=== PATIENT | female | born 1965 | race Hispanic/Latino ===

== ENCOUNTER 2018-02-22 13:23 | Emergency (ER) | payer MEDICARE ==
[2018-02-22] MEDS ORDERED: ASPIRIN 325 MG TABLET ONE (13:52)
[2018-02-22] MEDS ORDERED: SODIUM CHLORIDE 0.9% 1000ML 1,000 ML IV ONE (13:53)
[2018-02-22] MEDS ORDERED: ACETAMINOPHEN EXTRA STRENGTH 500 MG TABLET ONE (13:53)
[2018-02-22] MEDS ORDERED: PROCHLORPERAZINE EDISYLATE 10 MG/2 ML VIAL ONE (13:53)
[2018-02-22 13:58] LABS: BASOPHILS % (AUTO) 0.3 % (0.0-5.0); EOSINOPHILS % (AUTO) 0.6 % (0.0-8.0); HEMATOCRIT 41.9 % (36-48); LYMPHOCYTES % (AUTO) 14.7 % (21.0-51.0); MEAN CORPUSCULAR HEMOGLOBIN 29.7 pg (27.0-33.0); MEAN CORPUSCULAR HGB CONC 34.1 g/dL (32.0-36.0); MEAN CORPUSCULAR VOLUME 87.1 fL (79-99); MONOCYTES % (AUTO) 4.7 % (3.0-13.0); NEUTROPHILS % (AUTO) 79.7 % (40.0-77.0); PLATELET COUNT (AUTO) 249 K/uL (130-400); RED BLOOD CELL COUNT(AUTO) 4.81 MIL/uL (4.00-5.50); RED CELL DISTRIBUTION WIDTH 15.4 % (11.0-15.5)
[2018-02-22 14:03] LABS: CREATININE 0.5 mg/dL (0.5-1.5); POTASSIUM 3.9 mmol/L (3.5-5.1)
[2018-02-22 14:11] LABS: ALBUMIN 3.3 g/dL (3.5-5.0); BILIRUBIN,TOTAL 0.5 mg/dL (0.2-1.0); TOTAL PROTEIN, SERUM 7.3 g/dL (6.0-8.3)
[2018-02-22 14:17] LABS: AMPHET/METH SCREEN,URINE NEGATIVE (NEGATIVE); BARBITURATE SCREEN, URINE NEGATIVE (NEGATIVE); BENZODIAZEPINES SCREEN,URINE NEGATIVE (NEGATIVE); CANNABINOID SCREEN,URINE NEGATIVE (NEGATIVE); COCAINE SCREEN,URINE NEGATIVE (NEGATIVE); OPIATE SCREEN,URINE NEGATIVE (NEGATIVE); PHENCYCLIDINE SCREEN,URINE NEGATIVE (NEGATIVE)
[2018-02-22 14:19] LABS: INR 0.95 (0.85-1.15)
[2018-02-22 14:27] LABS: B-TYPE NATRIURETIC PEPTIDE 12 pg/mL (0-100)
== END 2018-02-22 16:45 | disposition home or self-care (01) ==
LOC: EDH 13:23
DX: J20.9 Acute bronchitis, unspecified (principal); R07.89 Other chest pain; E11.9 Type 2 diabetes mellitus without complications; E78.5 Hyperlipidemia, unspecified; I10 Essential (primary) hypertension; Z90.49 Acquired absence of other specified parts of digestive tract
CPT/HCPCS: 36415; 71045; 80053; 80305; 82550; 83880; 84484; 85025; 85610; 85730; 93005; 94761; 96361; 96374; 99285; J0780; J7030

== ENCOUNTER → 2019-06-17 | Outpatient (CLI) | payer MEDICARE | END | disposition home or self-care (01) | LOC: RAH 09:17 | PROVIDERS: ATTEND Internal Medicine Gastroenterology | DX: K76.0 Fatty (change of) liver, not elsewhere classified (principal); R16.0 Hepatomegaly, not elsewhere classified; R11.2 Nausea with vomiting, unspecified | CPT/HCPCS: 76700; 78264; A9541 ==

== ENCOUNTER 2022-05-25 14:57 | Emergency (ER) | payer MEDICARE, OTHER ==
[~2022-05-25] VITALS: Ht 154.9 cm; Wt 79.4 kg
[2022-05-25 14:58] VITALS: BP 126/73
[2022-05-25 15:43] LABS: BASOPHILS % (AUTO) 0.5 % (0.0-5.0); EOSINOPHILS % (AUTO) 0.4 % (0.0-8.0); HEMATOCRIT 36.4 % (36-48); MEAN CORPUSCULAR HEMOGLOBIN 28.6 pg (27.0-33.0); MEAN CORPUSCULAR HGB CONC 32.7 g/dL (32.0-36.0); MEAN CORPUSCULAR VOLUME 87.5 fL (79-99); MONOCYTES % (AUTO) 6.2 % (3.0-13.0); NEUTROPHILS % (AUTO) 66.9 % (40.0-77.0); PLATELET COUNT (AUTO) 194 K/uL (130-400); RED BLOOD CELL COUNT(AUTO) 4.16 MIL/uL (4.00-5.50); RED CELL DISTRIBUTION WIDTH 17.1 % (11.0-15.5); WHITE BLOOD COUNT (AUTO) 10.3 K/uL (4.8-10.8)
[2022-05-25 15:46] LABS: APPEARANCE,URINE CLEAR (CLEAR); BILIRUBIN,URINE NEGATIVE (NEGATIVE); COLOR,URINE YELLOW (YELLOW); GLUCOSE, URINE (UA) NEGATIVE (NEGATIVE); KETONES,URINE 5 mg/dL (NEGATIVE); LEUKOCYTE ESTERASE ,URINE SMALL (NEGATIVE); NITRATE,URINE NEGATIVE (NEGATIVE); OCCULT BLOOD,URINE NEGATIVE (NEGATIVE); PROTEIN,URINE NEGATIVE (NEGATIVE); UROBILINOGEN,URINE 0.2 mg/dL (0.2-1.0)
[2022-05-25 15:56] LABS: BACTERIA,URINE Few /HPF (None Seen); RBC,URINE 0-1 /HPF (0-1)
[2022-05-25 15:57] LABS: MUCUS,URINE Rare LPF (None Seen); SQUAMOUS EPITHELIAL CELL,UR Few /HPF (0-2)
[2022-05-25 15:59] LABS: ALBUMIN 3.3 g/dL (3.5-5.0); CREATININE 0.7 mg/dL (0.5-1.5); POTASSIUM 4.8 mmol/L (3.5-5.1); TOTAL PROTEIN, SERUM 7.2 g/dL (6.0-8.3)
[2022-05-25] MEDS ORDERED: KETOROLAC 30MG VIAL (30MG/ML) IVP ONE (16:00)
[2022-05-25] MEDS ORDERED: 0.9%NACL 1000ML 1,000 ML IV SCH (16:00)
[2022-05-25] MEDS ORDERED: ONDANSETRON 4MG INJ IVP ONE (16:00)
[2022-05-25] MEDS ORDERED: TAMS-1 PO (17:48)
[2022-05-25] MEDS ORDERED: KETO10 PO (17:48)
[2022-05-25] MEDS ORDERED: CEPH500B PO (17:48)
[2022-05-25] MEDS ORDERED: CEFTRIAXONE 1G VIAL ONE (18:00)
[2022-05-25] MEDS ORDERED: CEFTRIAXONE 1G VIAL IVP ONE (18:00)
[2022-05-25] MEDS ORDERED: TAMSULOSIN HCL 0.4 MG CAP.ER.24H PO SCH (18:00)
[2022-05-25] MEDS ORDERED: TAMSULOSIN HCL 0.4 MG CAP.ER.24H ONE (18:00)
== END 2022-05-25 18:10 | disposition home or self-care (01) ==
LOC: EDH 14:57
DX: N20.0 Calculus of kidney (principal); E11.9 Type 2 diabetes mellitus without complications; E78.00 Pure hypercholesterolemia, unspecified; I10 Essential (primary) hypertension; E66.9 Obesity, unspecified; E86.0 Dehydration; Z79.1 Long term (current) use of non-steroidal anti-inflammatories (NSAID); Z90.49 Acquired absence of other specified parts of digestive tract; Z68.33 Body mass index [BMI] 33.0-33.9, adult
CPT/HCPCS: 99284; 80053; 85025; 81001; 36415; 74176; 96374; 96361; 96375; J7030; J0696; J2405; J1885

== ENCOUNTER 2022-06-25 17:22 | Emergency (ER) | payer OTHER ==
[~2022-06-25] VITALS: Ht 154.9 cm; Wt 77.6 kg
[~2022-06-25 17:22] MED LIST: CEPH500B PO; KETO10 PO; TAMS-1 PO
[2022-06-25 17:54] LABS: APPEARANCE,URINE CLOUDY (CLEAR); BILIRUBIN,URINE NEGATIVE (NEGATIVE); COLOR,URINE COLORLESS (YELLOW); GLUCOSE, URINE (UA) NEGATIVE (NEGATIVE); KETONES,URINE NEGATIVE (NEGATIVE); LEUKOCYTE ESTERASE ,URINE 500 Leu/uL (NEGATIVE); NITRATE,URINE NEGATIVE (NEGATIVE); OCCULT BLOOD,URINE NEGATIVE (NEGATIVE); PROTEIN,URINE NEGATIVE (NEGATIVE); UROBILINOGEN,URINE 0.2 mg/dL (0.2-1.0)
[2022-06-25 18:07] LABS: BACTERIA,URINE RARE /HPF (None Seen); SQUAMOUS EPITHELIAL CELL,UR FEW /HPF (0-2)
[2022-06-25] MEDS ORDERED: KETOROLAC 30MG VIAL (30MG/ML) IVP ONE (19:00)
[2022-06-25] MEDS ORDERED: CEFTRIAXONE 1G VIAL IVP ONE (19:00)
[2022-06-25] MEDS ORDERED: PROMETHAZINE HCL 25 MG/ML 1ML AMPULE IM SCH (19:00)
[2022-06-25] MEDS ORDERED: CYCLOBENZAPRINE HCL 10 MG TABLET PO ONE (19:00)
[2022-06-25] MEDS ORDERED: 0.9% NACL 500ML IV.SOLN 500 ML IV SCH (19:00)
[2022-06-25 19:34] LABS: BASOPHILS % (AUTO) 0.4 % (0.0-5.0); EOSINOPHILS % (AUTO) 0.4 % (0.0-8.0); HEMATOCRIT 37.6 % (36-48); LYMPHOCYTES % (AUTO) 27.6 % (21.0-51.0); MEAN CORPUSCULAR HEMOGLOBIN 28.6 pg (27.0-33.0); MEAN CORPUSCULAR HGB CONC 33.5 g/dL (32.0-36.0); MEAN CORPUSCULAR VOLUME 85.3 fL (79-99); MONOCYTES % (AUTO) 5.8 % (3.0-13.0); NEUTROPHILS % (AUTO) 65.1 % (40.0-77.0); PLATELET COUNT (AUTO) 251 K/uL (130-400); RED BLOOD CELL COUNT(AUTO) 4.41 MIL/uL (4.00-5.50); RED CELL DISTRIBUTION WIDTH 15.5 % (11.0-15.5); WHITE BLOOD COUNT (AUTO) 13.6 K/uL (4.8-10.8)
[2022-06-25 19:46] LABS: CREATININE 0.8 mg/dL (0.5-1.5); POTASSIUM 3.9 mmol/L (3.5-5.1)
[2022-06-25 19:51] LABS: ALBUMIN 3.3 g/dL (3.5-5.0); TOTAL PROTEIN, SERUM 7.5 g/dL (6.0-8.3)
[2022-06-25] MEDS ORDERED: CEPH500B PO (20:21)
[2022-06-25] MEDS ORDERED: NAPR-1180 PO (20:21)
[2022-06-25] MEDS ORDERED: CYCL10TA16 PO (20:21)
[2022-06-25 20:30] VITALS: BP 122/56
== END 2022-06-25 20:35 | disposition home or self-care (01) ==
LOC: EDH 17:22
DX: G44.209 Tension-type headache, unspecified, not intractable (principal); E86.0 Dehydration; E11.65 Type 2 diabetes mellitus with hyperglycemia; N39.0 Urinary tract infection, site not specified; Z20.822 Contact with and (suspected) exposure to COVID-19; E78.00 Pure hypercholesterolemia, unspecified; I10 Essential (primary) hypertension; E66.9 Obesity, unspecified; Z68.32 Body mass index [BMI] 32.0-32.9, adult; Z79.1 Long term (current) use of non-steroidal anti-inflammatories (NSAID); Z90.49 Acquired absence of other specified parts of digestive tract
CPT/HCPCS: 99284; 96374; 96375; 80053; 85025; 87088; 81001; 36415; 96372; J7040; J2550; J0696; J1885; 96361